=== PATIENT | female | born 2000 | race Caucasian/White ===

== ENCOUNTER 2020-06-15 12:16 | Emergency (ER) | payer OTHER, MEDICAID ==
[~2020-06-15] VITALS: Ht 162.6 cm; Wt 54.4 kg
[2020-06-15 12:18] VITALS: BP 125/83
--- NOTE | 2020-06-15 12:21 | NUR ---
Patient ambulated to bed 3. RN evaluating patient at bedside.
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
[2020-06-15] MEDS ORDERED: ACETAMINOPHEN 325 MG TAB PO ONE (12:45)
[2020-06-15 13:38] VITALS: BP 125/83
== END 2020-06-15 13:38 | disposition home or self-care (01) ==
LOC: MED 12:16
DX: T20.02XA Burn of unspecified degree of lip(s), initial encounter (principal); F12.10 Cannabis abuse, uncomplicated; W34.09XA Accidental discharge from other specified firearms, initial encounter; Y93.89 Activity, other specified; Y92.89 Other specified places as the place of occurrence of the external cause; Y99.8 Other external cause status
CPT/HCPCS: 90471; 90715; 99283